=== PATIENT | female | born 2000 | race Hispanic/Latino ===

== ENCOUNTER 2024-11-09 01:13 | Emergency (ER) | payer SELFPAY ==
[~2024-11-09] VITALS: Ht 170.2 cm; Wt 94.3 kg
[~2024-11-09 01:13] MED LIST: GLYB2.5T6 PO; PNV1TABL17 PO
--- NOTE | 2024-11-09 02:12 | ERN ---
General Chief Complaint: FOOT INJURY/PAIN Stated Complaint: C/O PAIN TO RIGHT FOOT Time Seen by MD: 01:48 Source: patient History of Present Illness Initial Comments Patient is a healthy 24-year-old female who has had right foot pain for six months. And just in the last week it has gotten so bad that she can not walk properly on her right foot. She needs to toe tap when she walks with her right foot. She has no other constitutional symptoms no other past medical history. Allergies: Coded Allergies: No Known Drug Allergies (Unverified Allergy, Unknown, 08/29/19) Home Meds Reported Medications Pnv Cmb#21/Iron/Folic Acid ( Complete Caplet) 1 Each Tablet, 1 EACH PO DAILY, TAB 08/31/19 Glyburide (Glyburide 2.5MG Tab) 2.5 Mg Tab, 2.5 MG PO HS, TAB 08/31/19 Past Medical History Past Medical History: No Pertinent History Past Surgical History: None Female( History) LMP: Oct 27, 2024 ROS Dictation Review of systems is negative. She has no systemic symptoms that would suggest an arthritis or an infection that could be causing this pain Physical Exam Extremities Comment The patient's right foot has a very normal appearance to it there is maybe a small swelling on the medial superior arch and then a small skin lesion proximal to the heel near this swelling. Palpating those areas elicited no pain in the patient palpation for heel spurs also elicited no pain and also no plantar fasciitis. MDM I can start with a plain film series of the foot. And provide pain medications patient will need to see her primary care doctor and possibly obtain an MRI to find the cause of the symptoms. Plain films of the right foot are negative for fracture arthritis dislocation. I explained to the patient that options are oral pain medications with Motrin and Tylenol. I offered Toradol but she says she has no insurance. She should follow up with a mental health practitioner. ED Course Orders Procedure Category Date Status Time Foot Comp 3+Vws Rt RAD 11/09/24 Taken 02:12 Vital Signs Date Time Temp Pulse Resp B/P (MAP) Pulse Ox O2 Delivery O2 Flow Rate FiO2 11/09/24 02:08 98.6 66 20 124/87 100 Room Air* 0 21 11/09/24 01:14 98.4 80 20 148/96 99 Room Air DX & DISP Disposition: Discharge Departure Impression: Primary Impression: Foot and ankle pain Condition: Stable Additional Instructions: Refer to podiatry Referrals: MAYRA TSE MD (PCP) AGUSTIN RODRIGUES MD Nov 09, 2024 02:12
[2024-11-09 03:36] VITALS: BP 120/80; PULSE 60; RESP 20; TEMP 98.6; O2SAT 100
--- NOTE | 2024-11-09 10:20 | HMCIMG ---
FOOT COMP 3+VWS RT HISTORY: Pain COMPARISON: None TECHNIQUE: 3 images of right foot were obtained. FINDINGS: There is no acute displaced fracture or dislocation. There is a calcaneal spur. IMPRESSION: 1. Findings as described above.
== END 2024-11-09 03:35 | disposition home or self-care (01) ==
LOC: EDH 01:13
DX: M25.571 Pain in right ankle and joints of right foot (principal); R22.41 Localized swelling, mass and lump, right lower limb; Z79.899 Other long term (current) drug therapy
CPT/HCPCS: 73630; 99283